=== PATIENT | male | born 1970 | race Caucasian/White ===

== ENCOUNTER 2017-03-15 06:00 | Day surgery (SDC) | payer OTHER ==
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
[~2017-03-15 06:00] MED LIST: Acetaminophen TAB* 325 MG ONE; Acetaminophen TAB* 325 MG PO ONE; Buffered Lidocaine 0.9% SYRIN* 5 ML/SYR SYRINGE INTRADERM ONE; Buffered Lidocaine 0.9% SYRIN* 5 ML/SYR SYRINGE ONE; Famotidine IV* 10 MG/ML 2 ML (20 mg) IV ONE; Famotidine IV* 10 MG/ML 2 ML (20 mg) ONE; ceFAZolin 2 GM PREMIX (*) 2 GM/50 ML BAG IVPB ONE
[2017-03-15] MEDS ORDERED: Chloroprocaine 2%* 20 ML VIAL ONE (06:51)
[2017-03-15] MEDS ORDERED: Lidocaine 2% PF * 5 ML VIAL ONE (06:52)
[2017-03-15] MEDS ORDERED: Propofol* 10 MG/ML 20 ML BTL IV PUSH ONE (06:52)
[2017-03-15] MEDS ORDERED: Midazolam* 1 MG/ML 2 ML VIAL (2 MG) ONE ×3 (06:53→07:52)
[2017-03-15] MEDS ORDERED: Bupivacaine 0.5% SDV PF* 30 ML VIAL ONE ×2 (07:06→08:23)
[2017-03-15] MEDS ORDERED: Phenylephrine INJ* 50 MG in NS 0.9% 250 ML* 245 ML IV PRN (07:14)
[2017-03-15] MEDS ORDERED: Ondansetron INJ* 2 MG/ML VIAL IV PRN (07:14)
[2017-03-15] MEDS ORDERED: fentaNYL* 50 MCG/ML 2 ML VIAL (100 MCG VIAL) IV PRN (07:14)
[2017-03-15] MEDS ORDERED: PROCHLORPERAZINE INJ 5 MG/ML 2 ML VIAL IV PRN (07:14)
[2017-03-15] MEDS ORDERED: HYDROmorphone INJ* 1 MG/ML CARPUJECT SYRINGE IV PRN (07:14)
[2017-03-15] MEDS ORDERED: oxyCODONE TAB* 5 MG TAB PO PRN ×2 (07:14)
[2017-03-15] MEDS ORDERED: oxyCODONE TAB* 5 MG TAB ONE (09:17)
[2017-03-15 10:52] VITALS: BP 108/68
--- NOTE | 2017-03-16 05:41 | OP ---
DATE OF OPERATION: 03/15/17 - [facility] DATE OF : 72 SURGEON: Gregg Hurt MD ANESTHESIOLOGIST: Thuy Bell MD ANESTHESIA: Spinal PRE-OP DIAGNOSIS: Recurrent instability, right ankle. POST-OP DIAGNOSIS: Recurrent instability, right ankle. OPERATIVE PROCEDURE: Right ankle ligament repair with allograft. DESCRIPTION OF PROCEDURE: The patient was taken to the operating room where a longitudinal incision was made over the distal fibula. We reflected the capsule away from the distal fibula anterior aspect. Capsule itself was fairly thick. We split the capsule down to the neck of the talus and then drilled a 6 mm pest control pilot hole to accept the end of the semitendinosus allograft. This was fed through a smaller medial hole into the depth of the tunnel and then anchored with a 5.5 x 10 mm Bio-Tenodesis screw. We then repaired the rent in the anterior capsule with some 2-0 Vicryl sutures. The anatomic capsule was brought up to the fibula through drill holes using #1 Vicryl David-Maynor sutures. The allograft was brought up to the distal fibula with a roof made with a ralph and anchored to the F3 plate in a longitudinal fashion, pinning the allograft to the outside of the fibula. This was done under tension. The periosteum was then brought down over the anterior capsule. A free end of the allograft was brought down to the extensor retinaculum. We then irrigated thoroughly, closing with Vicryl and sebastian and a compression dressing plaster splint. [id number]/[facility] #: [id number] CLINT
--- NOTE | 2017-03-18 07:08 | RAD ---
INDICATION: Right ankle ligament repair. COMPARISON: Comparison is made prior MRI of the right ankle from November 09, 2016. TECHNIQUE: 1.3 seconds of intermittent fluoroscopic guidance were provided and a single spot film of the right ankle was obtained in the operating room. FINDINGS: There is a surgical plate present along the lateral aspect of the distal fibula transfixed with multiple screws. IMPRESSION: INTRAOPERATIVE CONTROL FILMS. CPT II Codes: 6045F
== END 2017-03-15 10:51 | disposition home or self-care (01) ==
LOC: OR 06:00
PROVIDERS: ATTEND Orthopaedic Surgery
DX: M25.371 Other instability, right ankle (principal); F41.9 Anxiety disorder, unspecified; K21.9 Gastro-esophageal reflux disease without esophagitis; R42 Dizziness and giddiness; F32.9 Major depressive disorder, single episode, unspecified; F43.10 Post-traumatic stress disorder, unspecified; Z86.73 Personal history of transient ischemic attack (TIA), and cerebral infarction without residual deficits; Z79.82 Long term (current) use of aspirin; Z72.0 Tobacco use
CPT/HCPCS: 76000; A9270-GY; C1713; C1776; J0690; J2250; J2400; J2704; L8699

== ENCOUNTER → 2017-11-01 05:56 | Day surgery (SDC) | payer OTHER ==
[~2017-11-01 05:56] MED LIST changes: -Acetaminophen TAB* 325 MG ONE; -Acetaminophen TAB* 325 MG PO ONE; +Acetaminophen TAB* 325 MG PO PRN; -Buffered Lidocaine 0.9% SYRIN* 5 ML/SYR SYRINGE ONE; +Bupivacaine 0.5% SDV PF* 30ML VIAL ONE; -Famotidine IV* 10 MG/ML 2 ML (20 mg) IV ONE; -Famotidine IV* 10 MG/ML 2 ML (20 mg) ONE; +Ketorolac INJ* 30 MG/ML 1 ML VIAL IV PRN; +Ketorolac INJ* 30 MG/ML 1 ML VIAL ONE; +Midazolam* 1 MG/ML 5 ML VIAL (5 MG) ONE; +Naloxone* 0.4 MG/ML 1 ML VIAL IV PRN; +Propofol* 10 MG/ML 20 ML BTL IV PUSH ONE; +fentaNYL* 50 MCG/ML 2 ML VIAL (100 MCG VIAL) ONE; +oxyCODONE/Acetamin 5/325 MG* TAB ONE; +oxyCODONE/Acetamin 5/325 MG* TAB PO PRN
[2017-11-01 08:55] VITALS: BP 126/92
--- NOTE | 2017-11-02 09:52 | OP ---
DATE OF OPERATION: 11/01/17 - [facility] DATE OF : 72 ATTENDING SURGEON: Gregg Hurt MD BLASTING CONTRACT MINER: Itzel Abdul PA-C PRE-OP DIAGNOSIS: Painful right fibular plate. POST-OP DIAGNOSIS: Painful right fibular plate. OPERATIVE PROCEDURE: Removal of plate, right fibula. DESCRIPTION OF PROCEDURE: The patient was taken to the operating room where a lateral positioning was used. We opened up a 5-cm longitudinal incision over the distal fibula and carried down directly to the plate. We removed the F3 plate with the appropriate square-headed screwdriver. We then repaired the periosteum over the plate. 2-0 Vicryl for the subcu and sebastian for the skin. Compression dressing applied. [id number]/[facility] #: [id number] [facility] HOSPITALKolby
== END | disposition home or self-care (01) ==
LOC: OR 05:56
PROVIDERS: ATTEND Orthopaedic Surgery
DX: T84.84XA Pain due to internal orthopedic prosthetic devices, implants and grafts, initial encounter (principal); Y83.1 Surgical operation with implant of artificial internal device as the cause of abnormal reaction of the patient, or of later complication, without mention of misadventure at the time of the procedure; S82.61XD Displaced fracture of lateral malleolus of right fibula, subsequent encounter for closed fracture with routine healing; X58.XXXD Exposure to other specified factors, subsequent encounter; I10 Essential (primary) hypertension; E78.5 Hyperlipidemia, unspecified; G47.33 Obstructive sleep apnea (adult) (pediatric); K21.9 Gastro-esophageal reflux disease without esophagitis; F43.10 Post-traumatic stress disorder, unspecified; F41.9 Anxiety disorder, unspecified; R42 Dizziness and giddiness; Z86.73 Personal history of transient ischemic attack (TIA), and cerebral infarction without residual deficits
CPT/HCPCS: 88300; A9270-GY; J0690; J1885; J2250; J2704; J3010

== ENCOUNTER 2018-07-15 10:28 | Emergency (ER) | payer BC, OTHER ==
[2018-07-15 10:46] VITALS: BP 136/75
--- NOTE | 2018-07-15 14:13 | UC ---
Respiratory Complaint HPI - HPI Summary HPI Summary: 5 DAYS OF COUGH, CONGESTION, ST, FATIGUE. NO FEVER, N/V/D. - History of Current Complaint Chief Complaint: UCRespiratory Stated Complaint: COUGH, CONGESTION Time Seen by Provider: 07/15/18 13:50 Hx Obtained From: Patient Onset/Duration: Gradual Onset, Lasting Days, Still Present Timing: Constant Severity Initially: Moderate Severity Currently: Moderate Pain Intensity: 6 Pain Scale Used: 0-10 Numeric Character: Cough: Nonproductive Aggravating Factors: Nothing Alleviating Factors: Nothing Associated Signs And Symptoms: Positive: URI, Nasal Congestion. Negative: Fever , Chills, Wheezing - Allergies/Home Medications Allergies/Adverse Reactions: Allergies Allergy/AdvReac Type Severity Reaction Status Date / Time No Known Allergies Allergy Verified 07/15/18 10:46 PMH/Surg Hx/FS Hx/Imm Hx Cardiovascular History: Hypertension - Surgical History Surgical History: Yes Surgery Procedure, Year, and Place: 1993 left knee scope [facility]. 1995 vasectomy/VASECTOMY REVERSAL ". 1999 LT INGUINAL HERNIA [facility]. 04/2017 RIGHT ANKLE RECONSTRUCTION [facility]. 2016 ANKLE SURGERY [facility] [place] - Family History Known Family History: Positive: Cardiac Disease - [place], Hypertension, Diabetes - Social History Alcohol Use: Occasionally Alcohol Amount: 1 PER MONTH Substance Use Type: None Smoking Status (MU): Never Smoked Tobacco Amount Used/How Often: 1 can every 2-3 days Have You Smoked in the Last Year: No Review of Systems All Other Systems Reviewed And Are Negative: Yes Constitutional: Positive: Negative ENT: Positive: Sore Throat, Nasal Discharge Respiratory: Positive: Cough Cardiovascular: Positive: Negative Gastrointestinal: Positive: Negative Neurological: Positive: Negative Physical Exam Triage Information Reviewed: Yes Appearance: Well-Appearing, No Pain Distress, Well-Nourished Vital Signs: Initial Vital Signs Temp 98.4 F 07/15/18 10:43 Pulse 95 07/15/18 10:43 Resp 17 07/15/18 10:43 BP 136/75 07/15/18 10:43 Pulse Ox 97 07/15/18 10:43 Vital Signs Reviewed: Yes Eyes: Positive: Conjunctiva Clear ENT: Positive: Hearing grossly normal, Pharynx normal, TMs normal Neck: Positive: Supple, Nontender, No Lymphadenopathy Respiratory Exam: Normal Cardiovascular Exam: Normal Abdomen Description: Positive: Soft Musculoskeletal: Positive: No Edema Neurological: Positive: Alert Psychological: Positive: Age Appropriate Behavior Skin: Negative: Rashes UC Diagnostic Evaluation - Laboratory O2 Sat by Pulse Oximetry: 97 Respiratory Course/Dx - Differential Dx/Diagnosis Provider Diagnosis: Upper respiratory infection Discharge - Sign-Out/Discharge Documenting (check all that apply): Patient Departure All imaging exams completed and their final reports reviewed: No Studies - Discharge Plan Condition: Stable Disposition: HOME Prescriptions: Albuterol HFA INHALER* [Ventolin HFA Inhaler*] 2 puff INH Q4H PRN #1 mdi PRN Reason: Shortness Of Breath predniSONE TAB* [Deltasone TAB*] 50 mg PO DAILY #5 tab Patient Education Materials: Upper Respiratory Infection (ED) Referrals: Jono Johnson MD [Primary Care Provider] - If Needed Additional Instructions: YOUR SYMPTOMS ARE LIKELY VIRALLY MEDIATED AND SHOULD RESOLVE ON THEIR OWN WITH TIME. NO INDICATION FOR ANTIBIOTICS AT PRESENT. REST, HYDRATE, OTC MEDS NEEDED. WILL TREAT WITH PREDNISONE AND ALBUTEROL TO HELP WITH AIRWAY INFLAMMATION. SEEK FOLLOW-UP IF YOU ARE NOT IMPROVING OVER THE NEXT 1-2 WEEKS. - Billing Disposition and Condition Condition: STABLE Disposition: Home
== END 2018-07-15 14:14 | disposition home or self-care (01) ==
LOC: UCEAST 10:28
DX: J06.9 Acute upper respiratory infection, unspecified (principal); F17.220 Nicotine dependence, chewing tobacco, uncomplicated
CPT/HCPCS: 99212; G0463